=== PATIENT | female | born 1995 | race Caucasian/White ===

== ENCOUNTER → 2019-07-21 | Emergency (ER) | payer BC, MEDICAID ==
[~2019-07-21] VITALS: Ht 167.6 cm; Wt 77.1 kg
[~2019-07-21] MED LIST: ACETAMINOPHEN ES 500 MG TABLET ONE; ACETAMINOPHEN ES 500 MG TABLET PO ONE; IV NS 0.9% 1,000 ML BAG IV ONE
--- NOTE | 2019-07-21 12:36 | NUR ---
bib self c/o dizziness since this morning around 10am,started new BP med yesterday, pt is aaox4, not in respiratory distress, hooked to monitor, kept rested and comfortable, will continue to monitor.
--- NOTE | 2019-07-21 12:41 | NUR ---
GISELLE KIMBALL HAND EMBROIDERER AT BEDSIDE FOR EVAL.
--- NOTE | 2019-07-21 12:45 | NUR ---
URINE SPECIMEN COLLECTED AND SENT TO LAB.
--- NOTE | 2019-07-21 12:50 | NUR ---
IV LINE ESTABLISHED, BLOOD DRAWN AND SENT TO LAB.
[2019-07-21 13:08] LABS: BASOPHILS % (AUTO) 0.4 % (0.0-2.0); EOSINOPHILS % (AUTO) 0.8 % (0.0-6.0); HEMATOCRIT 40 % (33-45); HEMOGLOBIN 13.4 g/dL (11.5-14.8); LYMPHOCYTES # (AUTO) 1.5 /CMM (0.8-4.8); MEAN CORPUSCULAR HGB CONC 33 g/dl (31.0-36.0); MEAN CORPUSCULAR VOLUME 82 fL (82-100); MONOCYTES # (AUTO) 0.5 /CMM (0.1-1.30); MONOCYTES % (AUTO) 7.9 % (2.0-12.0); NEUTROPHILS # (AUTO) 4.6 /CMM (1.8-8.9); NEUTROPHILS % (AUTO) 68.9 % (43.0-81.0); PLATELET COUNT (AUTO) 216 /CMM (150-450); RED BLOOD CELL COUNT(AUTO) 4.87 MIL/uL (4.0-5.2); WHITE BLOOD COUNT (AUTO) 6.7 K/uL (4.3-11.0)
[2019-07-21 13:29] LABS: CARBON DIOXIDE 27 mmol/L (21-32); CHLORIDE 102 mmol/L (98-107); CREATININE 0.9 mg/dL (0.6-1.3); GLUCOSE 86 mg/dL (74-106); POTASSIUM 3.6 mmol/L (3.5-5.1); SODIUM SERUM 138 mmol/L (136-145); UREA NITROGEN, BLOOD 6 mg/dL (7-18)
[2019-07-21 13:35] LABS: ALANINE AMINOTRANSFERASE 32 U/L (12-78); ALBUMIN 3.8 g/dL (3.4-5.0); ALKALINE PHOSPHATASE 59 U/L (46-116); ASPARTATE AMINOTRANSFERASE 25 U/L (15-37); BILIRUBIN,DIRECT 0.1 mg/dL (0.0-0.2); BILIRUBIN,TOTAL 0.4 mg/dL (0.2-1.0); TOTAL PROTEIN, SERUM 7.2 g/dL (6.4-8.2)
[2019-07-21 14:05] VITALS: BP 118/65
--- NOTE | 2019-07-21 14:14 | NUR ---
IV removed. Catheter intact and site benign. Pressure and 4x4 applied to site. No bleeding noted.Patient discharged to home in stable condition. Written and verbal after care instructions given. Patient verbalizes understanding of instruction.
== END | disposition home or self-care (01) ==
LOC: ER 12:31
DX: R42 Dizziness and giddiness (principal); T44.7X5A Adverse effect of beta-adrenoreceptor antagonists, initial encounter; I10 Essential (primary) hypertension; G43.909 Migraine, unspecified, not intractable, without status migrainosus; F32.9 Major depressive disorder, single episode, unspecified; F41.9 Anxiety disorder, unspecified; Y92.9 Unspecified place or not applicable
CPT/HCPCS: 36415; 71045; 80048; 80076; 84484; 85025; 93005; 96360; 99284; J7030

== ENCOUNTER 2019-08-24 21:10 | Emergency (ER) | payer BC, OTHER ==
[~2019-08-24] VITALS: Ht 167.6 cm; Wt 77.1 kg
--- NOTE | 2019-08-24 21:18 | NUR ---
C/O HEADACHE WITH N/V X4 HRS. DENIES VISION CHANGES, DIZZINESS, WEAKNESS. NO ACUTE DISTRESS NOTED. AOX4, AMB, VSS, RR EVEN AND UNLABORED ON RA. MADE COMFORTABLE AND READY FOR EVAL.
[2019-08-24] MEDS ORDERED: METOCLOPRAMIDE HCL 10 MG/2 ML VIAL ONE (22:21)
[2019-08-24] MEDS ORDERED: diphenhydrAMINE HCL 50 MG/ML VIAL ONE (22:21)
[2019-08-24] MEDS ORDERED: KETOROLAC TROMETHAMINE 15 MG/ML VIAL ONE (22:21)
[2019-08-24] MEDS: IV NS 0.9% 1,000 ML BAG IV ONE (22:48)
[2019-08-24] MEDS: diphenhydrAMINE HCL 50 MG/ML VIAL IV ONE (22:48)
[2019-08-24] MEDS: KETOROLAC TROMETHAMINE INJ 30 MG/ML VIAL IV ONE (22:48)
[2019-08-24] MEDS: METOCLOPRAMIDE HCL 10 MG/2 ML VIAL IV ONE (22:48)
--- NOTE | 2019-08-24 23:06 | NUR ---
Patient is resting comfortably in bed with eyes closed. Easily aroused. VSS
--- NOTE | 2019-08-24 23:59 | NUR ---
IV removed. Catheter intact and site benign. Pressure and 4x4 applied to site. No bleeding noted. Patient discharged to home in stable condition. Written and verbal after care instructions given. Patient verbalizes understanding of instruction. ambulatory with a steady gait noted. pt aaox4 no acute distress noted, resp even and unlabored.
[2019-08-25 00:23] VITALS: BP 136/78
== END 2019-08-25 | disposition home or self-care (01) ==
LOC: ER 21:12
DX: G43.909 Migraine, unspecified, not intractable, without status migrainosus (principal); R11.2 Nausea with vomiting, unspecified; I10 Essential (primary) hypertension; F32.9 Major depressive disorder, single episode, unspecified
CPT/HCPCS: 96361; 96374; 96375; 99284; J1200; J1885; J2765; J7030

== ENCOUNTER 2019-08-27 14:11 | Emergency (ER) | payer BC, OTHER ==
[~2019-08-27] VITALS: Ht 167.6 cm; Wt 79.4 kg
--- NOTE | 2019-08-27 14:20 | NUR ---
FEVER AND PRODUCTIVE COUGH X2 WKS, TODAY SOB AND CHEST PRESSURE, PT AWAKE, ALERT, -SOB, NAD NOTED, PENDING ER PROVIDER EVAL
[2019-08-27] MEDS ORDERED: clonazePAM 1 MG TABLET ONE ×2 (14:53→16:13)
[2019-08-27 14:56] LABS: BASOPHILS % (AUTO) 0.4 % (0.0-2.0); EOSINOPHILS % (AUTO) 0.2 % (0.0-6.0); HEMATOCRIT 41 % (33-45); HEMOGLOBIN 13.5 g/dL (11.5-14.8); LYMPHOCYTES % (AUTO) 13.2 % (20.0-44.0); MEAN CORPUSCULAR HGB CONC 33 g/dl (31.0-36.0); MEAN CORPUSCULAR VOLUME 82 fL (82-100); MONOCYTES # (AUTO) 0.5 /CMM (0.1-1.30); MONOCYTES % (AUTO) 6.4 % (2.0-12.0); NEUTROPHILS # (AUTO) 6.3 /CMM (1.8-8.9); NEUTROPHILS % (AUTO) 79.8 % (43.0-81.0); PLATELET COUNT (AUTO) 273 /CMM (150-450); WHITE BLOOD COUNT (AUTO) 7.9 K/uL (4.3-11.0)
[2019-08-27] MEDS ORDERED: clonazePAM 1 MG TABLET PO ONE ×2 (15:00→16:30)
[2019-08-27 15:05] LABS: CALCIUM, SERUM 9.2 mg/dL (8.5-10.1); CREATININE 0.9 mg/dL (0.6-1.3); POTASSIUM 3.1 mmol/L (3.5-5.1)
[2019-08-27 15:11] LABS: ALBUMIN 3.7 g/dL (3.4-5.0); BILIRUBIN,DIRECT 0.1 mg/dL (0.0-0.2); BILIRUBIN,TOTAL 0.2 mg/dL (0.2-1.0); TOTAL PROTEIN, SERUM 7.4 g/dL (6.4-8.2)
[2019-08-27] MEDS ORDERED: IV NS 0.9% 1,000 ML BAG IV ONE ×2 (16:00→18:30)
[2019-08-27] MEDS ORDERED: POTASSIUM CHLORIDE 20 MEQ TAB.PRT.SR PO ONE ×2 (16:00→16:13)
--- NOTE | 2019-08-27 16:00 | NUR ---
URINE COLLECTED-SENT TO LAB
[2019-08-27 16:05] LABS: APPEARANCE,URINE Clear (CLEAR); BILIRUBIN,URINE Negative (NEGATIVE); BLOOD, URINE Negative Ery/uL (NEGATIVE); COLOR,URINE Light yellow (YELLOW); KETONES,URINE Negative (NEGATIVE); LEUKOCYTE ESTERASE ,URINE Negative (NEGATIVE); NITRITE, URINE Negative (NEGATIVE); PROTEIN,URINE Negative (NEGATIVE); UGLUCOSE Negative (NEGATIVE); UROBILINOGEN,URINE 0.2 EU/dL (0.2)
[2019-08-27] MEDS ORDERED: hydrALAZINE HCL IV 20 MG VIAL ONE (16:13)
[2019-08-27] MEDS ORDERED: hydrALAZINE HCL IV 20 MG VIAL IV ONE (16:30)
--- NOTE | 2019-08-27 18:30 | NUR ---
RADHA RADFORD, ORDERED SECOND NS IVF. PT OCTOBER D/C AFTER, DC PAPERS IN CHART
[2019-08-27] MEDS ORDERED: ACETAMINOPHEN ES 500 MG TABLET ONE (18:38)
[2019-08-27] MEDS ORDERED: ACETAMINOPHEN 325 MG TABLET PO ONE (19:00)
[2019-08-27 19:30] VITALS: BP 135/80
--- NOTE | 2019-08-27 19:39 | NUR ---
Patient discharged to home in stable condition. Written and verbal after care instructions given. Patient verbalizes understanding of instruction. IV removed. Catheter intact and site benign. Pressure and 4x4 applied to site. No bleeding noted.
== END 2019-08-27 19:43 | disposition home or self-care (01) ==
LOC: ER 14:16
DX: R07.89 Other chest pain (principal); E87.6 Hypokalemia; I10 Essential (primary) hypertension; G43.909 Migraine, unspecified, not intractable, without status migrainosus; F41.9 Anxiety disorder, unspecified; F32.9 Major depressive disorder, single episode, unspecified
CPT/HCPCS: 36415; 71045; 80048; 80076; 80305; 81001; 83735; 84443; 84484; 84703; 85025; 85378; 93005; 96374; 99285; J0360; J7030; 81000-TC

== ENCOUNTER 2022-05-02 09:11 | Emergency (ER) | payer BC, OTHER ==
[~2022-05-02] VITALS: Ht 170.2 cm; Wt 90.7 kg
--- NOTE | 2022-05-02 09:25 | NUR ---
DR COBURN AT BEDSIDE FOR EVAL
[2022-05-02] MEDS ORDERED: diphenhydrAMINE HCL 50 MG/ML VIAL IV ONE (09:30)
[2022-05-02] MEDS ORDERED: KETOROLAC TROMETHAMINE INJ 30 MG/ML VIAL IV ONE (09:30)
[2022-05-02] MEDS ORDERED: METOCLOPRAMIDE HCL 10 MG/2 ML VIAL IV ONE (09:30)
--- NOTE | 2022-05-02 09:30 | NUR ---
BIBS "MIGRAINE SINCE LAST NIGHT, NAUSEA, AND VOMITING"
--- NOTE | 2022-05-02 10:00 | NUR ---
ESTABLISHED IV LINE RIGHT WRIST 22G INFUSING
[2022-05-02] MEDS ORDERED: KETOROLAC TROMETHAMINE INJ 30 MG/ML VIAL ONE (10:03)
[2022-05-02] MEDS ORDERED: diphenhydrAMINE HCL 50 MG/ML VIAL ONE (10:03)
[2022-05-02] MEDS ORDERED: METOCLOPRAMIDE HCL 10 MG/2 ML VIAL ONE (10:03)
--- NOTE | 2022-05-02 10:10 | NUR ---
WAIVER SIGNED BY PATIENT
--- NOTE | 2022-05-02 10:43 | NUR ---
IV removed. Catheter intact and site benign. Pressure and 4x4 applied to site. No bleeding noted.
--- NOTE | 2022-05-02 10:44 | NUR ---
Patient discharged to home in stable condition. Written and verbal after care instructions given. Patient verbalizes understanding of instruction.
[2022-05-02 10:45] VITALS: BP 144/83
== END 2022-05-02 10:48 | disposition home or self-care (01) ==
LOC: ER 09:17
DX: G43.909 Migraine, unspecified, not intractable, without status migrainosus (principal); I10 Essential (primary) hypertension; F32.A Depression, unspecified; F41.9 Anxiety disorder, unspecified
CPT/HCPCS: 99284; 96374; 96375; J1200; J2765; J1885

== ENCOUNTER 2022-11-09 18:37 | Emergency (ER) | payer BC, OTHER ==
[~2022-11-09] VITALS: Ht 170.2 cm; Wt 88.5 kg
--- NOTE | 2022-11-09 19:00 | NUR ---
DR MCCANN AT BEDSIDE FOR EVAL. AWAITING FOR ORDERS.
--- NOTE | 2022-11-09 19:09 | NUR ---
1900BIBS LOWER ABDOMEN PAIN 7/10 SINCE MORNING WITH NAUSEA. TOOK PEPTO TO NO AVAIL
--- NOTE | 2022-11-09 19:13 | NUR ---
URINE COLLECTED AN SENT TO LAB
--- NOTE | 2022-11-09 19:13 | NUR ---
US TECH AT BEDSIDE FOR PELVIC US
--- NOTE | 2022-11-09 19:22 | NUR ---
PT ENDORSED TO [facility]ERY FOR BENJI
--- NOTE | 2022-11-09 19:30 | NUR ---
[employer]LECT[employer]ARF[employer] OPERATOR AT PT'S BEDSIDE
[2022-11-09 19:57] LABS: BASOPHILS % (AUTO) 0.3 % (0.0-2.0); EOSINOPHILS % (AUTO) 2.4 % (0.0-6.0); HEMATOCRIT 44 % (33-45); HEMOGLOBIN 14.6 g/dL (11.5-14.8); LYMPHOCYTES # (AUTO) 2.5 K/uL (0.8-4.8); LYMPHOCYTES % (AUTO) 28.9 % (20.0-44.0); MEAN CORPUSCULAR HGB CONC 33 g/dl (31.0-36.0); MEAN CORPUSCULAR VOLUME 87 fL (82-100); MONOCYTES # (AUTO) 0.6 K/uL (0.1-1.30); MONOCYTES % (AUTO) 6.9 % (2.0-12.0); NEUTROPHILS # (AUTO) 5.4 K/uL (1.8-8.9); NEUTROPHILS % (AUTO) 61.5 % (43.0-81.0); PLATELET COUNT (AUTO) 254 K/uL (150-450); RED BLOOD CELL COUNT(AUTO) 5.13 MIL/uL (4.0-5.2); WHITE BLOOD COUNT (AUTO) 8.7 K/uL (4.3-11.0)
[2022-11-09 20:35] LABS: BILIRUBIN,URINE NEGATIVE (NEGATIVE); COLOR,URINE YELLOW (YELLOW); LEUKOCYTE ESTERASE ,URINE NEGATIVE (NEGATIVE); NITRITE, URINE NEGATIVE (NEGATIVE); PH,URINE 6.5 (5.0-8.0); PROTEIN,URINE NEGATIVE (NEGATIVE); UGLUCOSE NEGATIVE (NEGATIVE); UROBILINOGEN,URINE 0.2 EU/dL (0.2)
[2022-11-09 20:40] LABS: CALCIUM, SERUM 9.6 mg/dL (8.5-10.1); CREATININE 0.8 mg/dL (0.6-1.3); POTASSIUM 3.6 mmol/L (3.5-5.1)
[2022-11-09 20:47] LABS: ALBUMIN 3.8 g/dL (3.4-5.0); BILIRUBIN,DIRECT 0.1 mg/dL (0.0-0.2); BILIRUBIN,TOTAL 0.2 mg/dL (0.2-1.0); TOTAL PROTEIN, SERUM 7.5 g/dL (6.4-8.2)
--- NOTE | 2022-11-09 21:02 | NUR ---
Patient discharged to home in stable condition. Written and verbal after care instructions given. Patient verbalizes understanding of instruction.
[2022-11-09 21:03] VITALS: BP 148/83
== END 2022-11-09 21:03 | disposition home or self-care (01) ==
LOC: ER 18:42
DX: R10.30 Lower abdominal pain, unspecified (principal); G43.909 Migraine, unspecified, not intractable, without status migrainosus; I10 Essential (primary) hypertension; F32.A Depression, unspecified; F41.9 Anxiety disorder, unspecified
CPT/HCPCS: 36415; 76856-TC; 80048-TC; 80076-TC; 84703-TC; 85025-TC

== ENCOUNTER 2023-02-21 16:13 | Emergency (ER) | payer BC, OTHER ==
[~2023-02-21] VITALS: Ht 170.2 cm; Wt 104.3 kg
[2023-02-21] MEDS ORDERED: ACETAMINOPHEN ES 500 MG TABLET PO ONE (17:00)
[2023-02-21] MEDS ORDERED: ACETAMINOPHEN ES 500 MG TABLET ONE (17:09)
[2023-02-21 18:26] VITALS: BP 135/80; TEMP 98.4; O2SAT 97
== END 2023-02-21 18:26 | disposition home or self-care (01) ==
LOC: ER 16:19
DX: G43.909 Migraine, unspecified, not intractable, without status migrainosus (principal); I10 Essential (primary) hypertension; F32.A Depression, unspecified; F41.9 Anxiety disorder, unspecified
CPT/HCPCS: 70450-TC

== ENCOUNTER 2023-08-24 10:48 | Emergency (ER) | payer BC, OTHER ==
[~2023-08-24] VITALS: Ht 170.2 cm; Wt 106.6 kg
[2023-08-24 12:22] LABS: BASOPHILS % (AUTO) 0.4 % (0.0-2.0); EOSINOPHILS # (AUTO) 0.2 K/uL (0.0-0.7); EOSINOPHILS % (AUTO) 3.6 % (0.0-6.0); HEMATOCRIT 39 % (33-45); LYMPHOCYTES # (AUTO) 1.7 K/uL (0.8-4.8); LYMPHOCYTES % (AUTO) 27.1 % (20.0-44.0); MEAN CORPUSCULAR HEMOGLOBIN 29 PG (26.0-33.0); MEAN CORPUSCULAR HGB CONC 34 g/dl (31.0-36.0); MEAN CORPUSCULAR VOLUME 87 fL (82-100); MONOCYTES # (AUTO) 0.6 K/uL (0.1-1.30); MONOCYTES % (AUTO) 9.6 % (2.0-12.0); NEUTROPHILS # (AUTO) 3.7 K/uL (1.8-8.9); NEUTROPHILS % (AUTO) 59.3 % (43.0-81.0); PLATELET COUNT (AUTO) 206 K/uL (150-450); RED BLOOD CELL COUNT(AUTO) 4.47 MIL/uL (4.0-5.2); RED CELL DISTRIBUTION WIDTH 13.4 % (11.5-15.0); WHITE BLOOD COUNT (AUTO) 6.2 K/uL (4.3-11.0)
[2023-08-24 12:30] LABS: APPEARANCE,URINE SLIGHTLY CLOUDY (CLEAR); BILIRUBIN,URINE NEGATIVE (NEGATIVE); BLOOD, URINE NEGATIVE Ery/uL (NEGATIVE); COLOR,URINE YELLOW (YELLOW); KETONES,URINE NEGATIVE (NEGATIVE); LEUKOCYTE ESTERASE ,URINE NEGATIVE (NEGATIVE); NITRITE, URINE NEGATIVE (NEGATIVE); PH,URINE 6.5 (5.0-8.0); PROTEIN,URINE NEGATIVE (NEGATIVE); UGLUCOSE NEGATIVE (NEGATIVE); UROBILINOGEN,URINE 0.2 EU/dL (0.2)
[2023-08-24 12:34] LABS: PREGNANCY TEST URINE QUAL NEGATIVE (NEGATIVE)
[2023-08-24 12:43] LABS: ALBUMIN 3.5 g/dL (3.4-5.0); BILIRUBIN,DIRECT 0.1 mg/dL (0.0-0.2); BILIRUBIN,TOTAL 0.4 mg/dL (0.2-1.0); CALCIUM, SERUM 8.7 mg/dL (8.5-10.1); POTASSIUM 4.3 mmol/L (3.5-5.1); TOTAL PROTEIN, SERUM 6.7 g/dL (6.4-8.2)
[2023-08-24] MEDS ORDERED: IBUP-1955 PO (14:22)
[2023-08-24 14:26] VITALS: BP 135/93; TEMP 98.5; O2SAT 99
== END 2023-08-24 14:26 | disposition home or self-care (01) ==
LOC: ER 11:00
DX: R10.31 Right lower quadrant pain (principal); I10 Essential (primary) hypertension; G43.909 Migraine, unspecified, not intractable, without status migrainosus; F32.A Depression, unspecified; F41.9 Anxiety disorder, unspecified
CPT/HCPCS: 36415; 76856-TC; 80048-TC; 80076-TC; 83690-TC; 84703-TC; 85025-TC

== ENCOUNTER 2024-04-24 20:21 | Emergency (ER) | payer BC, OTHER ==
[~2024-04-24] VITALS: Ht 170.2 cm; Wt 108.9 kg
[~2024-04-24 20:21] MED LIST changes: -ACETAMINOPHEN ES 500 MG TABLET ONE; -ACETAMINOPHEN ES 500 MG TABLET PO ONE; +IBUP-1955 PO; -IV NS 0.9% 1,000 ML BAG IV ONE
[2024-04-24 20:28] VITALS: BP 151/100; TEMP 99.7
[2024-04-24] MEDS ORDERED: EPINEPHRINE (1:1000) 1 MG/ML AMPUL ONE (20:48)
[2024-04-24] MEDS ORDERED: FAMOTIDINE/PF INJ 20 MG/2 ML VIAL IV ONE (20:49)
[2024-04-24] MEDS ORDERED: prednisoLONE 5 MG/5 ML UDC ONE (20:49)
[2024-04-24] MEDS ORDERED: diphenhydrAMINE HCL 50 MG/ML VIAL ONE (20:49)
[2024-04-24] MEDS: prednisoLONE 5 MG/5 ML UDC PO ONE (21:05)
[2024-04-24] MEDS: diphenhydrAMINE HCL 50 MG/ML VIAL IV ONE (21:05)
[2024-04-24] MEDS: FAMOTIDINE/PF INJ 20 MG/2 ML VIAL IV ONE (21:05)
[2024-04-24] MEDS: EPINEPHRINE (1:1000) 1 MG/ML AMPUL IM ONE (21:14)
[2024-04-24] MEDS ORDERED: PRED10TA PO (23:12)
[2024-04-24] MEDS ORDERED: EPIN0.3P3 IM (23:14)
[2024-04-24 23:28] VITALS: O2SAT 98
== END 2024-04-24 23:33 | disposition home or self-care (01) ==
LOC: ER 20:23
DX: O26.891 Other specified pregnancy related conditions, first trimester (principal); T78.40XA Allergy, unspecified, initial encounter; O99.511 Diseases of the respiratory system complicating pregnancy, first trimester; O16.1 Unspecified maternal hypertension, first trimester; O99.341 Other mental disorders complicating pregnancy, first trimester; F32.A Depression, unspecified; G43.909 Migraine, unspecified, not intractable, without status migrainosus; J45.909 Unspecified asthma, uncomplicated; Z3A.01 Less than 8 weeks gestation of pregnancy; Z79.52 Long term (current) use of systemic steroids; Z88.1 Allergy status to other antibiotic agents; Z88.2 Allergy status to sulfonamides
CPT/HCPCS: 99284; 96374; 96375; 96372; J1200; J0171; J3490; J7510

== ENCOUNTER 2024-05-21 11:44 | Emergency (ER) | payer BC, OTHER ==
[~2024-05-21] VITALS: Ht 170.2 cm; Wt 99.8 kg
[~2024-05-21 11:44] MED LIST changes: +EPIN0.3P3 IM; +PRED10TA PO
[2024-05-21 11:55] VITALS: BP 152/95; TEMP 98.3; O2SAT 99
== END 2024-05-21 13:19 | disposition left against medical advice (07) ==
LOC: ER 11:44
DX: R51.9 Headache, unspecified (principal); Z53.21 Procedure and treatment not carried out due to patient leaving prior to being seen by health care provider